=== PATIENT | male | born 1950 | race Caucasian/White ===

== ENCOUNTER 2023-11-04 12:08 | Outpatient (AMB) | payer MEDICARE, SELFPAY ==
--- NOTE | 2023-11-04 12:22 | MHC.OFFWIV ---
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 He states the symptoms started out with viral type symptoms URI. On and now he has been left with an intermittent cough. He states that yesterday he was perfectly fine and then today started coughing again. His family was concerned about pneumonia or bronchitis and therefore he decided to come in to get checked. He denies fever chills nausea vomiting chest pain shortness of breath. He has been using Mucinex with good relief of symptoms. [facility] Social History Patient Tobacco Use Status: Never used Tobacco Review of Systems Const Denies increased appetite Card Denies radiating jaw, neck or arm pain and Denies dyspnea Resp Denies hemoptysis and Denies dyspnea Physical Exam Vital Signs: Last Vital Signs Temp 97.2 F 11/04/23 12:55 Pulse 78 11/04/23 12:55 BP 160/98 H 11/04/23 12:55 Pulse Ox 97 11/04/23 12:55 Oxygen Delivery Method Room Air 11/04/23 12:55 BMI result Body Mass Index 25.1 Const General: healthy appearing and no acute distress HEENT Head: Yes normal to inspection Ears: external ears normal Mouth: Normal oral and palatal mucosa present Throat: Yes posterior oropharynx normal Chest Chest palpation & inspection: normal inspection of the chest Resp Effort & Inspection: normal respiratory effort and able to speak in complete sentences Auscultation: clear to auscultation bilaterally Assessment & Plan Assessment & Plan (1) Cough: Code(s): R05.9 - Cough, unspecified Plan: The patient's symptoms appear to be postviral cough syndrome as he only has a mild cough that is intermittently bothering him a couple of weeks after having had a cold. He is taking Mucinex but she finds to be helpful and I will add Carlos Moreno to for him to try just in case. Patient is otherwise well appearing with clear lungs. Recommend supportive care. Medications: New benzonatate 100 mg PO TID PRN 14 caps 0RF cough Coding Level of Care Code Est Pt Level 3 (40480) Diagnoses Cough R05.9
[2023-11-04 12:55] VITALS: BP 160/98; PULSE 78; TEMP 36.2; O2SAT 97; BMI 25.1
== END 2023-11-04 13:42 | disposition home or self-care (01) ==
PROVIDERS: PCP Nurse Practitioner Family; Visit Provider Emergency Medicine
DX: R05.9 Cough, unspecified (principal)
CPT/HCPCS: 99213

== ENCOUNTER 2024-11-24 13:44 | Outpatient (REF) | payer MEDICARE, SELFPAY ==
--- NOTE | ~2024-11-24 | US_ITS ---
EXAMINATION: US KIDNEY BILATERAL HISTORY: CKD stage III, HTN TECHNIQUE: Real-time grayscale ultrasound imaging of the kidneys was performed and images were reviewed. COMPARISON: There are no prior studies for comparison. FINDINGS: Right kidney: The right kidney measures 9.1 x 4.8 x 4.6 cm. Renal parenchymal echotexture and thickness are normal. There are no masses. There is no hydronephrosis or renal calculi. Left Kidney: The left kidney measures 9.6 x 5.0 x 3.8 cm. Renal parenchymal echotexture and thickness are normal. There are no masses. There is a 3 mm nonobstructing calcification at the lower pole. There is no hydronephrosis. US/US renal BI IMPRESSION: 3 mm left renal calculus. Otherwise unremarkable renal ultrasound. Electronically signed by: Bulmaro Gallegos MD 11/28/2024 07:16 AM [facility] [place]
== END 2024-11-24 13:45 | disposition home or self-care (01) ==
LOC: HO.US 13:44
PROVIDERS: Visit Provider Internal Medicine Nephrology
DX: I12.9 Hypertensive chronic kidney disease with stage 1 through stage 4 chronic kidney disease, or unspecified chronic kidney disease (principal); N18.31 Chronic kidney disease, stage 3a
CPT/HCPCS: 76775

== ENCOUNTER → 2024-11-24 13:58 | Outpatient (BNV) | payer MEDICARE, SELFPAY | PROVIDERS: Visit Provider Radiology Diagnostic Radiology | DX: R10.32 Left lower quadrant pain (principal) | CPT/HCPCS: 76775 ==